=== PATIENT | female | born 1995 | race Caucasian/White ===

== ENCOUNTER 2018-12-07 09:14 | Emergency (ER) | payer OTHER ==
[~2018-12-07] VITALS: Ht 165.1 cm; Wt 55.8 kg
[2018-12-07] MEDS ORDERED: FAMOTIDINE20 MG (09:44)
[2018-12-07] MEDS ORDERED: OMEPRAZOLE20 MG (09:44)
[2018-12-07] MEDS ORDERED: DOXYCYCLINE HY100 M2 (09:45)
[2018-12-07] MEDS ORDERED: OXYCODONE HCL5 M1 (09:46)
== END 2018-12-07 16:32 | disposition home or self-care (01) ==
LOC: ER 09:14
DX: N39.0 Urinary tract infection, site not specified (principal); D72.829 Elevated white blood cell count, unspecified